=== PATIENT | female | born 1950 | race Caucasian/White ===

== ENCOUNTER 2020-08-06 08:59 | Outpatient (REF) | payer MEDICARE, SELFPAY ==
[2020-08-06 09:47] LABS: Glucose Urine UA NEG (NEG); Leukocyte Esterase Urine 1+ (NEG); Nitrite Urine NEG (NEG); Specific Gravity - Urine >= 1.030 (1.005-1.025); UACC Culture Trigger YES; Urine Blood 1+ (NEG); Urine Ketones NEG (NEG); Urine Protein NEG (NEG-TRACE)
[2020-08-06 09:49] LABS: Appearance Urine HAZY; Color Urine YELLOW
[2020-08-06 09:54] LABS: Bacteria Urine TRACE /LPF; Mucus Urine 1+ /LPF; RBC Urine 0-2 /HPF (0); Squamous Epithelial Cell Urine 1+ /LPF
[2020-08-06 10:05] LABS: MANUAL DIFF FLAG NO
[2020-08-06 10:11] LABS: Basophils Percent Auto 0.7 % (0-2); Eosinophils Absolute Auto 0.2 X10*3/uL (0.0-0.4); Eosinophils Percent Auto 2.8 % (0-4); Hematocrit 42.9 % (37-47); Hemoglobin 13.7 g/dl (12.0-16.0); Imm Gran Abs Auto 0.01 X10*3/uL (0.00-0.03); Imm Gran Pct Auto 0.2 % (0.0-0.4); Lymphocytes Absolute Auto 1.1 X10*3/uL (1.2-4.9); Lymphocytes Percent Auto 19.1 % (20-40); Mean Corpuscular HGB Conc 31.9 g/dl (31.0-35.0); Mean Corpuscular Hemoglobin 29.2 pg (27.0-33.0); Mean Corpuscular Volume 91.5 fL (80-98); Mean Platelet Volume 11.2 fL (9.4-12.3); Monocytes Absolute Auto 0.5 X10*3/uL (0.1-1.2); Neutrophils Absolute Auto 3.9 X10*3/uL (2.0-8.3); Neutrophils Percent Auto 69.2 % (45-73); Platelet Count 210 X10*3/uL (160-400); Red Blood Count 4.69 X10*6/uL (4.20-5.50); Red Cell Distribution Width 12.3 % (11.0-16.0); White Blood Count 5.7 X10*3/uL (4.8-10.8)
[2020-08-06 10:22] LABS: Alanine Aminotransferase 29 U/L (0-31); Albumin Level 4.3 g/dL (3.5-5.0); Alkaline Phosphatase 91 U/L (39-117); Anion Gap 13 (12-20); Aspartate Amino Transferase 23 U/L (5-31); Bilirubin Total 0.7 mg/dL (0.0-1.0); Blood Urea Nitrogen 17 mg/dL (9-16); Calcium 9.6 mg/dL (8.4-10.2); Carbon Dioxide 27 mmol/L (22-29); Chloride 107 mmol/L (96-108); Cholesterol 203 mg/dL; Estimated Glomerular Filt Rate > 60; Glucose Fasting 90 mg/dL (60-99); HDL Cholesterol 55 mg/dL; LDL Cholesterol Calculated 128 mg/dl; Potassium 4.4 mmol/L (3.3-5.1); Sodium 143 mmol/L (135-145); Triglycerides 104 mg/dL
[2020-08-06 10:45] LABS: Free T4 (Free Thyroxine) 0.87 ng/dL (0.71-1.85); Thyroid Stimulating Hormone 1.38 uIU/mL (0.32-4.0); Vitamin D 25-OH Total 20.8 ng/mL (>30)
== END 2020-08-06 09:00 | disposition home or self-care (01) ==
LOC: HO.LAB 08:59
PROVIDERS: PCP Internal Medicine; Visit Provider Internal Medicine
DX: E78.00 Pure hypercholesterolemia, unspecified (principal); E55.9 Vitamin D deficiency, unspecified; R30.0 Dysuria
CPT/HCPCS: 36415; 80053; 80061; 81001; 81003; 82306; 84439; 84443; 85025; 87086

== ENCOUNTER 2020-09-23 10:33 | Outpatient (REF) | payer MEDICARE, SELFPAY ==
[2020-09-23 12:57] LABS: MANUAL DIFF FLAG NO
[2020-09-23 13:03] LABS: Basophils Absolute Auto 0.1 X10*3/uL (0.0-0.2); Basophils Percent Auto 0.7 % (0-2); Eosinophils Absolute Auto 0.1 X10*3/uL (0.0-0.4); Eosinophils Percent Auto 1.8 % (0-4); Hematocrit 43.1 % (37-47); Hemoglobin 13.8 g/dl (12.0-16.0); Imm Gran Abs Auto 0.01 X10*3/uL (0.00-0.03); Imm Gran Pct Auto 0.1 % (0.0-0.4); Lymphocytes Absolute Auto 1.3 X10*3/uL (1.2-4.9); Lymphocytes Percent Auto 17.6 % (20-40); Mean Corpuscular Hemoglobin 29.1 pg (27.0-33.0); Mean Corpuscular Volume 90.9 fL (80-98); Mean Platelet Volume 11.5 fL (9.4-12.3); Monocytes Absolute Auto 0.5 X10*3/uL (0.1-1.2); Monocytes Percent Auto 7.1 % (2-11); Neutrophils Absolute Auto 5.3 X10*3/uL (2.0-8.3); Neutrophils Percent Auto 72.7 % (45-73); Platelet Count 214 X10*3/uL (160-400); Red Blood Count 4.74 X10*6/uL (4.20-5.50); Red Cell Distribution Width 12.1 % (11.0-16.0); White Blood Count 7.3 X10*3/uL (4.8-10.8)
[2020-09-23 13:31] LABS: Alanine Aminotransferase 27 U/L (0-31); Albumin Level 4.2 g/dL (3.5-5.0); Alkaline Phosphatase 77 U/L (39-117); Anion Gap 11 (12-20); Aspartate Amino Transferase 22 U/L (5-31); Bilirubin Total 1.1 mg/dL (0.0-1.0); Blood Urea Nitrogen 17 mg/dL (9-16); Calcium 9.8 mg/dL (8.4-10.2); Carbon Dioxide 30 mmol/L (22-29); Chloride 108 mmol/L (96-108); Estimated Glomerular Filt Rate > 60; Glucose Random 89 mg/dL (60-115); Potassium 4.2 mmol/L (3.3-5.1); Sodium 145 mmol/L (135-145); Total Protein 6.9 g/dL (6.5-8.0)
== END 2020-09-23 10:34 | disposition home or self-care (01) ==
LOC: HO.WFDLDS 10:33
PROVIDERS: Visit Provider Internal Medicine
DX: R30.0 Dysuria (principal); R19.7 Diarrhea, unspecified
CPT/HCPCS: 36415; 80053; 85025

== ENCOUNTER 2021-01-11 21:15 | Outpatient (REF) | payer MEDICARE, SELFPAY ==
[2021-01-13 14:02] LABS: Appearance Urine HAZY; Color Urine YELLOW; Glucose Urine UA NEG (NEG); Leukocyte Esterase Urine 1+ (NEG); Nitrite Urine NEG (NEG); Specific Gravity - Urine >= 1.030 (1.005-1.025); UACC Culture Trigger YES; Urine Blood NEG (NEG); Urine Ketones NEG (NEG); Urine Protein NEG (NEG-TRACE)
[2021-01-13 14:29] LABS: Calcium Oxalate Crystals Urine 3+ /LPF; Squamous Epithelial Cell Urine 1+ /LPF
[2021-01-13 14:30] LABS: RBC Urine 0 /HPF (0)
== END 2021-01-11 21:16 | disposition home or self-care (01) ==
LOC: HO.10HDLNP 21:15
PROVIDERS: Visit Provider Internal Medicine
DX: R30.0 Dysuria (principal)
CPT/HCPCS: 81001; 81003; 87086

== ENCOUNTER 2023-06-22 11:00 | Emergency (ER) | payer MEDICARE, SELFPAY ==
--- NOTE | ~2023-06-22 | XR_ITS ---
EXAMINATION: XR HAND, LEFT CLINICAL INFORMATION: Pain, ecchymosis over the third and second MCP COMPARISON: Hand radiographs 05/10/2010 TECHNIQUE: 3 views of the hand FINDINGS: No fracture or dislocation. Advanced degenerative changes at first carpometacarpal joint with loss of joint space and osteoarthritis at the interphalangeal joints with degenerative spurring progressed from prior. No cortical erosion. Soft tissues are unremarkable. XR/XR hand LT min 3V IMPRESSION: * No acute fracture or dislocation. 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
--- NOTE | ~2023-06-22 | CT_ITS ---
EXAMINATION: CT head/brain wo IV con CT facial bones wo IV con CT cervical spine wo IV con INDICATION INFORMATION: Fall, pain, ecchymosis to nose COMPARISON: Cervical spine radiograph 01/11/2012 TECHNIQUE: Multidetector CT acquisitions of the head, maxillofacial region, and cervical spine were obtained without IV contrast. Multiplanar reformats were acquired and utilized for image interpretation. This CT examination was performed using dose optimization techniques as appropriate, variously including the following: * Automated exposure control * Adjustment of mA and/or kV according to patient size (this includes techniques or standardized protocols for targeted exams where dose is matched to indication/reason for exam; i.e. extremities or head) Use of iterative reconstruction technique DLP: 2386 mGy-cm FINDINGS: HEAD: There is no evidence of acute intracranial hemorrhage or territorial infarction. No abnormal mass-effect or midline shift is seen. [place]ston to white matter differentiation is well preserved. No extra-axial fluid collections are identified. No hydrocephalus. Calcifications in the bilateral basal ganglia and cerebellum. Proportional prominence of the ventricles and sulcal spaces is consistent with severe volume loss. Confluent periventricular and deep white matter hypoattenuation is consistent with severe small vessel ischemic changes. No acute soft tissue abnormality. No acute calvarial fracture. Mild hyperostosis frontalis interna. The mastoid air cells are well aerated. MAXILLOFACIAL: No acute maxillofacial fractures are seen. The mandible, maxilla, pterygoid plates, nasal bones, zygomatic arches, paranasal sinus toussaint, and bony orbits are intact. Small dependent layers in the sphenoid sinuses. Otherwise, the frontal, maxillary and ethmoid sinuses are well aerated. The uncinate process is normal bilaterally. The infundibula and middle meati are patent. There is a rightward nasal septal deviation. Severe degenerative changes of the bilateral temporomandibular joints with subchondral cysts and marginal osteophytes. The mandibular heads remain well-seated in the condylar fossa. The orbits demonstrate a normal appearance bilaterally. The globes are intact, and there are no suspicious findings to suggest retrobulbar hemorrhage. CERVICAL SPINE: There is anatomic alignment of the vertebral bodies and posterior elements. Vertebral body heights and intervertebral disc spaces are maintained. No acute fracture or subluxation. Moderate multilevel facet arthropathy. The atlantooccipital and atlantoaxial articulations are normal. Moderate atlantodental spondylosis. The bony canal and neural foramina are well maintained. There is no prevertebral soft tissue swelling. No significant soft tissue abnormality within the neck. The visualized lung apices are clear. CT/CT cervical spine wo IV con IMPRESSION: 1. Evaluation is severely limited by motion artifact in the head, facial bones and cervical spine. 2. No acute intracranial hemorrhage or edematous territorial infarction. Severe chronic appearing generalized volume loss and ischemic microangiopathy. 3. No acute osseous abnormality within the maxillofacial region. Severe bilateral TMJ degenerative changes. 4. No acute osseous abnormality within the cervical spine. Moderate multilevel cervical spondylosis.
--- NOTE | 2023-06-22 11:12 | ECG_ITS ---
Test Reason : FALL Blood Pressure : / mmHG Vent. Rate : 054 BPM Atrial Rate : 054 BPM P-R Int : 138 ms QRS Dur : 078 ms QT Int : 476 ms P-R-T Axes : 033 045 055 degrees QTc Int : 451 ms Sinus bradycardia Septal infarct , age undetermined Abnormal ECG When compared with ECG of 21-APR-2003 00:01, Vent. rate has decreased BY 32 BPM Referred By: Katie Haro Electronically Signed By:DELVIN OWENS MD
[2023-06-22 11:23] VITALS: BP 157/66; BP 167/88; PULSE 53; PULSE 61; RESP 16; TEMP 36.3; O2SAT 100; O2SAT 99; BMI 25.4
--- NOTE | 2023-06-22 11:57 | ED.FALL ---
HPI - Fall General Chief Complaint: Fall Stated Complaint: FALL + HEAD STRIKE Time Seen by Provider: 06/22/23 11:11 Source: family (Daughter) and EMS Mode of arrival: EMS History of Present Illness HPI Narrative: 72-year-old [facility] of [facility] and an unwitnessed fall with head strike but unknown loss of consciousness and no history of being on blood thinners. History is provided primarily by the daughter given patient's underlying dementia. Related Data Allergies Allergy/AdvReac Type Severity Reaction Status Date / Time Unable to Assess Allergy Verified 06/22/23 11:26 Review of Systems Review of Systems: Pertinent positives and negatives as stated in HPI [facility] Past Medical History Source: nursing notes reviewed Social History Social History Smoked in Last 30 Days: No Use of substances other than those prescribed or required for medical reasons: No Advance Directives: No Advance Directives Information Provided: No Do you have a plan to hurt others: No Plan Physical Exam Vital Signs: Vital Signs: Last Vital Signs Temp 97.2 F 06/22/23 14:17 Pulse 53 06/22/23 14:17 Resp 18 06/22/23 14:17 BP 136/58 L 06/22/23 14:17 Pulse Ox 100 06/22/23 14:17 O2 Del Method Room Air 06/22/23 14:17 BMI result Body Mass Index 25.4 VITAL SIGNS: Reviewed. GENERAL: Well developed, well nourished, in no acute distress. HEAD: Normocephalic/2 cm superficial laceration to left forehead EYES: PERRLA, EOMI EARS: Ext canals without abnormality NOSE: Nares patent bilateral, no septal hematoma but significant ecchymosis over the bridge of the nose and suspect underlying fracture, no obvious deviation at this time OROPHARYNX: no oral lesions noted, posterior pharynx clear and non-erythematous without noted tonsillar enlargement/erythema/exudates NECK: Supple, no adenopathy LUNGS: Normal breath sounds. No adventitious sounds or accessory muscle use. SpO2<100> CARDIOVASCULAR: Regular rate and rhythm without noted murmurs ABDOMEN: Soft, non-tender, non-distended with bowel sounds. PELVIS: Stable, nontender MUSCULOSKELETAL: No tenderness, deformities, or effusions noted on gross inspection. EXTREMITIES: No cyanosis, clubbing or edema. SKIN: Inspection of the skin reveals no rashes NEUROLOGIC: Alert and oriented x 2. Strength and sensation to light touch were grossly intact x 4. Procedures Laceration Laceration 1: Site: face Side (If applicable): left Size (cm): 2 Description: linear Depth: simple, single layer Medical Decision Making Medical Decision Making [facility] Narrative: 72F with history and clinical presentation, DDX: mechanical fall, will rule out cervical spine injury as well as intracranial hemorrhage. I reviewed all investigations and hematologic indices are negative for leukocytosis/anemia/thrombocytopenia. Coagulation studies are within normal limits. Chemistry indices are negative for EDUARDO/electrolyte or liver enzyme derangements and high sensitivity troponin is undetectable without acute changes on EKG. CT scan of the head negative for intracranial hemorrhage or mass effect and cervical spine is negative for fracture or subluxation and facial CT does not demonstrate any evidence of fracture. My interpretation of the hand x-ray is that there are no acute fractures, patient I am able to tolerate straight catheterization, no concerns for urinary tract infection so will discontinue that steady as a feel that patient's event was a mechanical fall not secondary to underlying infection. Signed out to Dr Rodrigues - f/u LEFT hand XR Differential Diagnosis Differential Diagnoses: The differential diagnosis associated with the presentation includes Please see the discussion above Admission/Observation Consideration of admission/observation: Escalation of care including admission/observation considered Please see the discussion above Lab Data [facility] Lab Attestation statement: I reviewed the patient's lab results. Please see the discussion above 06/22/23 12:09 06/22/23 12:09 Labs: Lab Results 06/22/23 Range/Units 12:09 WBC 7.3 (4.8-10.8) X10*3/uL RBC 4.93 (4.20-5.50) X10*6/uL Hgb 14.7 (12.0-16.0) g/dl Hct 44.3 (37.0-47.0) % MCV 89.9 (80.0-98.0) fL MCH 29.8 (27.0-33.0) pg MCHC 33.2 (31.0-35.0) g/dl RDW 12.5 (11.0-16.0) % Plt Count 247 (160-400) X10*3/uL MPV 10.9 (9.4-12.3) fL Immature Gran % (Auto) 0.3 (0.0-0.4) % Neut % (Auto) 75.8 H (45-73) % Lymph % (Auto) 12.9 L (20-40) % [place] % (Auto) 6.1 (2-11) % Eos % (Auto) 4.2 H (0-4) % Baso % (Auto) 0.7 (0-2) % Lymph # (Auto) 1.0 L (1.2-4.9) X10*3/uL [place] # (Auto) 0.5 (0.1-1.2) X10*3/uL Eos # (Auto) 0.3 (0.0-0.4) X10*3/uL Baso # (Auto) 0.1 (0.0-0.2) X10*3/uL Abs Immat Gran (auto) 0.02 (0.00-0.03) X10*3/uL Absolute Neuts (auto) 5.6 (2.0-8.3) x10*3/uL Absolute Nucleated RBC 0.000 (0.0-0.012) X10*3/uL Nucleated RBC % (auto) 0.0 (0.0-0.2) /100WBC PT 12.1 (11.1-13.3) SEC INR 1.0 (0.9-1.1) Sodium 144 (135-145) mmol/L Potassium 3.8 (3.3-5.1) mmol/L Chloride 106 (96-108) mmol/L Carbon Dioxide 27 (22-29) mmol/L Anion Gap 15 (12-20) BUN 12 (9-16) mg/dL Creatinine 0.72 (0.5-1.4) mg/dL Estim Creat Clear Calc 65.5 Estimated GFR > 60 Random Glucose 93 (60-115) mg/dL Calcium 9.6 (8.4-10.2) mg/dL Total Bilirubin 0.6 (0.0-1.0) mg/dL AST 22 (5-31) U/L ALT 17 (0-31) U/L Alkaline Phosphatase 89 (39-117) U/L Troponin I High Sens < 2.7 (<3.5-17.0) ng/L Total Protein 7.6 (6.5-8.0) g/dL Albumin 4.1 (3.5-5.0) g/dL Independent Interpretation I performed an independent interpretation of an: EKG Interpretation: Sinus bradycardia, HR -54, no STEMI, [place]/QRS/QTC is within normal limits. Radiology Impression Discussion of test interpretation with radiology: I have reviewed the radiologist's reading. Radiologist Impression: Please see the discussion above Critical Care Time Critical Care Time Critical Care Time: Yes Total Critical Care Time: 45 Attestation: I personally attest to this time spent taking care of the patient. Discharge Plan Discharge Clinical Impression: Fall, Forehead laceration, Laceration of nose, Contusion of nose Patient Disposition: er [facility] Instructions: Laceration (ED), Fall Prevention for Older Adults (ED), Skin Adhesive Care (ED) Additional Instructions: May gently cleanse laceration of the nose with soap and water and allowed to heal. Please do not expose the skin adhesive to water for the next 24 hours but thereafter there should be no problem. Follow-up with primary care doctor within the next 1-2 days. Referrals: Faith Vargas NP [Primary Care Provider] - Print Language: Tuvaluan
[2023-06-22 12:14] LABS: MANUAL DIFF FLAG NO
[2023-06-22 12:18] LABS: Basophils Absolute Auto 0.1 X10*3/uL (0.0-0.2); Basophils Percent Auto 0.7 % (0-2); Eosinophils Absolute Auto 0.3 X10*3/uL (0.0-0.4); Eosinophils Percent Auto 4.2 % (0-4); Hematocrit 44.3 % (37.0-47.0); Hemoglobin 14.7 g/dl (12.0-16.0); Imm Gran Abs Auto 0.02 X10*3/uL (0.00-0.03); Imm Gran Pct Auto 0.3 % (0.0-0.4); Lymphocytes Percent Auto 12.9 % (20-40); Mean Corpuscular HGB Conc 33.2 g/dl (31.0-35.0); Mean Corpuscular Hemoglobin 29.8 pg (27.0-33.0); Mean Corpuscular Volume 89.9 fL (80.0-98.0); Mean Platelet Volume 10.9 fL (9.4-12.3); Monocytes Absolute Auto 0.5 X10*3/uL (0.1-1.2); Monocytes Percent Auto 6.1 % (2-11); Neutrophils Absolute Auto 5.6 x10*3/uL (2.0-8.3); Neutrophils Percent Auto 75.8 % (45-73); Platelet Count 247 X10*3/uL (160-400); Red Blood Count 4.93 X10*6/uL (4.20-5.50); Red Cell Distribution Width 12.5 % (11.0-16.0); White Blood Count 7.3 X10*3/uL (4.8-10.8)
[2023-06-22 12:22] LABS: Prothrombin Time 12.1 SEC (11.1-13.3)
[2023-06-22 12:30] LABS: Alanine Aminotransferase 17 U/L (0-31); Albumin Level 4.1 g/dL (3.5-5.0); Alkaline Phosphatase 89 U/L (39-117); Anion Gap 15 (12-20); Aspartate Amino Transferase 22 U/L (5-31); Bilirubin Total 0.6 mg/dL (0.0-1.0); Blood Urea Nitrogen 12 mg/dL (9-16); Calcium 9.6 mg/dL (8.4-10.2); Carbon Dioxide 27 mmol/L (22-29); Chloride 106 mmol/L (96-108); Creatinine Clr Calc Pharmacy 65.5; Estimated Glomerular Filt Rate > 60; Glucose Random 93 mg/dL (60-115); Potassium 3.8 mmol/L (3.3-5.1); Sodium 144 mmol/L (135-145); Total Protein 7.6 g/dL (6.5-8.0)
[2023-06-22 12:41] LABS: Troponin-I High Sensitivity < 2.7 ng/L (<3.5-17.0)
--- NOTE | 2023-06-22 12:56 | PC.NURSE ---
pt comes from dementia unit at the [facility] in [place]. per pt daughter who is at bedside, pt is at baseline mentation. pt face is bloodies with 1 inch lac to firehead and 1 in lac to tip of nose. pt cleaned up and non-stick pad placed to forehead to help keep blood out of eyes. pt resting quietly, denies pain. rr even/unlabored. plan of care ongoing.
[2023-06-22 14:17] VITALS: BP 136/58; PULSE 53; RESP 18; TEMP 36.2; O2SAT 100
[2023-06-22 16:59] VITALS: BP 150/58; PULSE 60; RESP 16; TEMP 36.4; O2SAT 96
[2023-06-22 17:00] VITALS: BP 150/58; PULSE 60; RESP 16; TEMP 36.4; O2SAT 96
== END 2023-06-22 17:01 | disposition skilled nursing facility (03) ==
PROVIDERS: Emergency Provider Student in an Organized Health Care Education/Training Program; PCP Nurse Practitioner Family
DX: S01.81XA Laceration without foreign body of other part of head, initial encounter (principal); S01.21XA Laceration without foreign body of nose, initial encounter; S00.33XA Contusion of nose, initial encounter; F03.90 Unspecified dementia, unspecified severity, without behavioral disturbance, psychotic disturbance, mood disturbance, and anxiety; W19.XXXA Unspecified fall, initial encounter; Y93.9 Activity, unspecified; Y92.9 Unspecified place or not applicable; Y99.9 Unspecified external cause status
CPT/HCPCS: 12011; 36415; 51701; 70450; 70486; 72125; 73130; 80053; 84484; 85025; 85610; 93005; 99284

== ENCOUNTER → 2023-06-22 11:12 | Outpatient (BNV) | payer MEDICARE, SELFPAY | PROVIDERS: Emergency Provider Student in an Organized Health Care Education/Training Program; PCP Nurse Practitioner Family; Visit Provider Internal Medicine Cardiovascular Disease | DX: R00.1 Bradycardia, unspecified (principal); R94.31 Abnormal electrocardiogram [ECG] [EKG] | CPT/HCPCS: 93010 ==

== ENCOUNTER 2023-08-31 13:32 | Emergency (ER) | payer MEDICARE, SELFPAY ==
--- NOTE | ~2023-08-31 | CT_ITS ---
EXAM: CT HEAD WITHOUT CONTRAST CT CERVICAL SPINE INDICATION: Reason for Exam fall head strike TECHNIQUE: A noncontrast CT scan was performed from the skull base to the vertex. A noncontrast CT scan of the cervical spine was performed from the base of the skull through T1 at 2.5 mm and 0.625 mm collimation. Coronal and sagittal reformats were obtained at the acquisition workstation. This CT examination was performed using dose optimization techniques as appropriate, variously including the following: * Automated exposure control * Adjustment of mA and/or kV according to patient size (this includes techniques or standardized protocols for targeted exams where dose is matched to indication/reason for exam; i.e. extremities or head) * Use of iterative reconstruction technique Dose length product is 1508 mGy-cm. COMPARISON: CT 06/22/2023 FINDINGS: Head: Motion artifact degrading images, limiting evaluation. There is no evidence of acute intracranial hemorrhage or territorial infarction. No abnormal mass effect or midline shift is seen. [place] to white matter differentiation is well preserved. No extra-axial fluid collections are identified. Commensurate prominence of the ventricles and sulci is compatible with generalized parenchymal volume loss. There is periventricular and subcortical white matter hypoattenuation, most likely representing microangiopathic disease. No acute calvarial fracture.. Right maxillary sinus mucosal thickening/fluid. Sphenoid sinus partial opacification/effusions. Mastoid air cells are well-aerated. Cervical Spine: Significant motion artifact degrading images, limiting evaluation. The atlantooccipital and atlantoaxial articulations is maintained.. Straightening of the normal cervical lordosis. Otherwise, there is anatomic alignment of the vertebral bodies and posterior elements. Vertebral body heights are maintained. No significant vertebral body compression is identified. Evaluation for fracture is limited by significant motion artifact. Multilevel mild-moderate cervical spondylosis. Central canal is maintained. No prevertebral soft tissue swelling. Biapical pleural parenchymal scarring. CT/CT cervical spine wo IV con IMPRESSION: CT HEAD: 1. CT head evaluation is limited by motion artifact. No evidence of acute intracranial hemorrhage or edematous large vessel territorial infarction.. Repeat CT as clinically indicated. 2. Right maxillary, sphenoid sinus disease. CT cervical spine 1. Significant motion artifact degrading images, limiting evaluation. Repeat CT scan as clinically indicated. 2. Vertebral body heights are maintained without evidence of significant compression deformity. Evaluation for fractures is otherwise limited. 3. Cervical spondylosis.
--- NOTE | ~2023-08-31 | XR_ITS ---
EXAMINATION: PORTABLE CHEST 1 VIEW CLINICAL INFORMATION: fall chest trauma. COMPARISON: No recent pertinent prior studies are available for comparison. TECHNIQUE: Portable frontal view of the chest was obtained. FINDINGS: The lungs are well expanded. Chronic appearing coarsened reticular markings are seen but no acute appearing focal infiltrate, effusion, edema, or pneumothorax. Cardiac and mediastinal silhouettes are within normal limits for technique. No acute bony abnormality seen. Specifically no displaced rib fractures are appreciated. XR/XR chest 1V IMPRESSION: No evidence of acute disease.
[2023-08-31 13:46] VITALS: BP 114/89; BP 121/57; PULSE 52; PULSE 72; RESP 16; TEMP 36.9; O2SAT 100; O2SAT 98; BMI 24.2
[2023-08-31 13:54] VITALS: BP 121/57; PULSE 52; RESP 16; TEMP 36.9; O2SAT 98
--- NOTE | 2023-08-31 13:56 | ECG_ITS ---
Test Reason : FALL Blood Pressure : / mmHG Vent. Rate : 055 BPM Atrial Rate : 055 BPM P-R Int : 154 ms QRS Dur : 072 ms QT Int : 488 ms P-R-T Axes : 041 029 053 degrees QTc Int : 466 ms Sinus bradycardia Septal infarct (cited on or before 22-JUN-2023) Abnormal ECG When compared with ECG of 22-JUN-2023 11:43, No significant change was found Referred By: Eduin Zamora Electronically Signed By:HERNAN HERMAN
--- NOTE | 2023-08-31 14:09 | ED.GENADULT ---
HPI - General Adult General Chief complaint: Fall Stated complaint: FALL WITH HEADSTRIKE Time Seen by Provider: 08/31/23 13:57 History of Present Illness ED Provider: Noah WINCHESTER HPI narrative: 72 yo female with history of advanced dementia presenting with daughter after a fall at [facility]. Staff reports head strike on the shower, denies LOC or open wound, not on blood thinners. Patient is not a reliable historian, daughter at bedside helping gather history. Daughter reports patient has advanced dementia and cognitive impairment but is able to ambulate independently. Patient is fatigued and not responding to questions, daughter reports she seems more tired than usual. Unclear of symptoms prior to fall. C collar in place. Related Data Previous Rx's ?Medication ?Instructions ?Recorded nystatin 100,000 unit/gram topical 1 appl topical BID #15 grams 08/31/23 cream Allergies Allergy/AdvReac Type Severity Reaction Status Date / Time Unable to Assess Allergy Verified 08/31/23 13:50 [facility] Social History Social History Advance Directives: No Advance Directives Information Provided: No Do you have a plan to hurt others: No Plan Physical Exam ED Vital Signs: Vital Signs - 24 hr 08/31/23 13:46 08/31/23 13:54 08/31/23 13:54 Temperature 98.4 F 98.4 F 98.4 F Pulse Rate 52 52 52 Respiratory Rate 16 16 16 Blood Pressure 121/57 L 121/57 L 121/57 L Pulse Oximetry 98 98 98 Oxygen Delivery Method Room Air Room Air Oxygen Flow Rate 08/31/23 15:51 Temperature 97.6 F Pulse Rate 55 Respiratory Rate 10 L Blood Pressure Pulse Oximetry 100 Oxygen Delivery Method Room Air Oxygen Flow Rate 99 BMI result Body Mass Index 24.2 vss Appearance: Not oriented to time, situation, place. No acute distress.? Head: Normocephalic, atraumatic, no step-offs or deformities Eyes: Pupils equal, round and reactive to light.?Constricted pupils b/l Neck: Normal inspection.? Neck supple.? CVS: Normal heart rate and rhythm.? Pulses normal.? Respiratory: No respiratory distress.? Breath sounds normal.? Abdomen: Soft and nontender.? Skin: Skin warm and dry.? Normal skin color.? Normal skin turgor.? Extremities: No lower extremity edema.? No calf ttp. 5/5 strength to bilateral upper and lower extremities Back: No midline tenderness, no C-spine tenderness, full range of motion, no CVA tenderness bilaterally Neuro: Not oriented to time, place, or situation. No motor deficit.? No sensory deficit. CN 2-12 intact Course Reevaluation(s) Reevaluation #1: CBC unremarkable. Chemistry pending. UA pending Time: 15:13 Reevaluation #2: CT head limited by motion no evidence of acute intracranial hemorrhage or edematous large vessel territorial infarction right maxillary sphenoid sinus disease. Significant motion artifact again in the cervical spine vertebral body heights are maintained without evidence of significant compression deformity. Chemistry unremarkable. Nursing currently trying to straight cath. Time: 15:32 Reevaluation #3: Sign out to janki. Medical Decision Making Medical Decision Making [facility] Narrative: 72 year old female with history of dementia presenting after fall at [facility] facility, + head strike no LOC, not on blood thinners. PE not oriented to person, place, or situation, b/l miosis. Hx and PE concerning for concussion versus ICH. Unlikely stroke, posterior stroke, ACS, arrhythmia, dissection. Plan - labs, imaging, EKG, urine Differential Diagnosis Differential Diagnoses: The differential diagnosis associated with the presentation includes Hx and PE concerning for concussion versus ICH. Unlikely stroke, posterior stroke, ACS, arrhythmia, dissection. Admission/Observation Consideration of admission/observation: Escalation of care including admission/observation considered Lab Data [facility] Lab Attestation statement: I reviewed the patient's lab results. 08/31/23 15:00 08/31/23 15:00 Labs: Lab Results 08/31/23 Range/Units 15:00 WBC 7.4 (4.8-10.8) X10*3/uL RBC 4.56 (4.20-5.50) X10*6/uL Hgb 13.6 (12.0-16.0) g/dl Hct 40.3 (37.0-47.0) % MCV 88.4 (80.0-98.0) fL MCH 29.8 (27.0-33.0) pg MCHC 33.7 (31.0-35.0) g/dl RDW 12.3 (11.0-16.0) % Plt Count 187 (160-400) X10*3/uL MPV 11.0 (9.4-12.3) fL Immature Gran % (Auto) 0.3 (0.0-0.4) % Neut % (Auto) 77.5 H (45-73) % Lymph % (Auto) 13.2 L (20-40) % [place] % (Auto) 6.6 (2-11) % Eos % (Auto) 2.0 (0-4) % Baso % (Auto) 0.4 (0-2) % Lymph # (Auto) 1.0 L (1.2-4.9) X10*3/uL [place] # (Auto) 0.5 (0.1-1.2) X10*3/uL Eos # (Auto) 0.2 (0.0-0.4) X10*3/uL Baso # (Auto) 0.0 (0.0-0.2) X10*3/uL Abs Immat Gran (auto) 0.02 (0.00-0.03) X10*3/uL Absolute Neuts (auto) 5.7 (2.0-8.3) x10*3/uL Absolute Nucleated RBC 0.000 (0.0-0.012) X10*3/uL Nucleated RBC % (auto) 0.0 (0.0-0.2) /100WBC PT 12.4 (11.1-13.3) SEC INR 1.0 (0.9-1.1) Sodium 143 (135-145) mmol/L Potassium 3.9 (3.3-5.1) mmol/L Chloride 111 H (96-108) mmol/L Carbon Dioxide 24 (22-29) mmol/L Anion Gap 12 (12-20) BUN 16 (9-16) mg/dL Creatinine 0.78 (0.5-1.4) mg/dL Estim Creat Clear Calc 60.1 Estimated GFR > 60 Random Glucose 91 (60-115) mg/dL Calcium 9.3 (8.4-10.2) mg/dL Total Bilirubin 0.4 (0.0-1.0) mg/dL AST 22 (5-31) U/L ALT 14 (0-31) U/L Alkaline Phosphatase 81 (39-117) U/L Total Protein 6.8 (6.5-8.0) g/dL Albumin 3.7 (3.5-5.0) g/dL Independent Interpretation I performed an independent interpretation of an: CT Scan ( CT/CT cervical spine wo IV con IMPRESSION: CT HEAD: 1. CT head evaluation is limited by motion artifact. No evidence of acute intracranial hemorrhage or edematous large vessel territorial infarction.. Repeat CT as clinically indicated. 2. Right maxillary, sphenoid sinus disease. CT cervical spi) Radiology Impression Discussion of test interpretation with radiology: I have reviewed the radiologist's reading. External Record Review External record reviewed: Outpatient record and Prior outpatient radiology Chronic Conditions Patient?s care impacted by: Other (dementia ) Discharge Plan Discharge Clinical Impression: Fall, Concussion, Dementia, Candidal intertrigo Patient Disposition: Home, Self-Care Instructions: Dementia (ED), Concussion (ED), Fall Prevention (ED) Additional Instructions: Take your medications as prescribed. If you were prescribed antibiotics today, it is important that you take your medication to their entirety, do not skip any doses, do not finish them early. Follow-up with your primary care provider this week. Return to the emergency department with new or worsening symptoms. Such as fevers, chills, chest pain, shortness of breath, nausea, vomiting, dizziness, headache, vision changes, lethargy In case of emergency call 911 Prescriptions: New nystatin 100,000 unit/gram cream 1 appl topical BID Qty: 15 0RF Referrals: Physician,Unknown J [Primary Care Provider] - 2 days Print Language: Chilean
[2023-08-31 15:05] LABS: MANUAL DIFF FLAG NO
[2023-08-31 15:06] LABS: Basophils Percent Auto 0.4 % (0-2); Eosinophils Absolute Auto 0.2 X10*3/uL (0.0-0.4); Hematocrit 40.3 % (37.0-47.0); Hemoglobin 13.6 g/dl (12.0-16.0); Imm Gran Abs Auto 0.02 X10*3/uL (0.00-0.03); Imm Gran Pct Auto 0.3 % (0.0-0.4); Lymphocytes Percent Auto 13.2 % (20-40); Mean Corpuscular HGB Conc 33.7 g/dl (31.0-35.0); Mean Corpuscular Hemoglobin 29.8 pg (27.0-33.0); Mean Corpuscular Volume 88.4 fL (80.0-98.0); Monocytes Absolute Auto 0.5 X10*3/uL (0.1-1.2); Monocytes Percent Auto 6.6 % (2-11); Neutrophils Absolute Auto 5.7 x10*3/uL (2.0-8.3); Neutrophils Percent Auto 77.5 % (45-73); Platelet Count 187 X10*3/uL (160-400); Red Blood Count 4.56 X10*6/uL (4.20-5.50); Red Cell Distribution Width 12.3 % (11.0-16.0); White Blood Count 7.4 X10*3/uL (4.8-10.8)
[2023-08-31 15:11] LABS: Prothrombin Time 12.4 SEC (11.1-13.3)
[2023-08-31 15:24] LABS: Alanine Aminotransferase 14 U/L (0-31); Albumin Level 3.7 g/dL (3.5-5.0); Alkaline Phosphatase 81 U/L (39-117); Anion Gap 12 (12-20); Aspartate Amino Transferase 22 U/L (5-31); Bilirubin Total 0.4 mg/dL (0.0-1.0); Blood Urea Nitrogen 16 mg/dL (9-16); Calcium 9.3 mg/dL (8.4-10.2); Carbon Dioxide 24 mmol/L (22-29); Chloride 111 mmol/L (96-108); Creatinine Clr Calc Pharmacy 60.1; Estimated Glomerular Filt Rate > 60; Glucose Random 91 mg/dL (60-115); Potassium 3.9 mmol/L (3.3-5.1); Sodium 143 mmol/L (135-145); Total Protein 6.8 g/dL (6.5-8.0)
[2023-08-31 15:51] VITALS: PULSE 55; RESP 10; TEMP 36.4; O2SAT 100
[2023-08-31 16:03] LABS: Appearance Urine Cloudy; Color Urine Yellow; Glucose Urine UA Negative (Negative); Leukocyte Esterase Urine Large (3+) (Negative); Nitrite Urine Negative (Negative); PH 6.5 (5.0-9.0); UMIC TRIGGER UACC YES; Urine Blood Moderate (2+) (Negative); Urine Ketones Negative (Negative); Urine Protein Negative (Neg-Trace)
[2023-08-31 16:35] LABS: Influenza A PCR NEGATIVE (Negative); Influenza B PCR NEGATIVE (Negative); Resp Syncy Virus RNA Qual PCR NEGATIVE (Negative); SARS COV2 PCR INHOUSE POSITIVE (Negative)
[2023-08-31 16:45] LABS: RBC Urine 0-2 /HPF (0-2); UACC Culture Trigger YES
[2023-08-31 16:46] LABS: Bacteria Urine 1+ (None Seen); Hyaline Casts Urine 0-2 /LPF (0-2); Squamous Epithelial Cell Urine 0-2 /HPF (0-2)
[2023-08-31 17:23] VITALS: BP 131/64; PULSE 55; RESP 10; TEMP 36.4; O2SAT 100
[2023-08-31 18:34] VITALS: BP 131/64; PULSE 55; RESP 10; TEMP 36.4; O2SAT 100
== END 2023-08-31 18:35 ==
PROVIDERS: Physician Assistant; Emergency Provider Emergency Medicine
DX: U07.1 COVID-19 (principal); S06.0X0A Concussion without loss of consciousness, initial encounter; W19.XXXA Unspecified fall, initial encounter; F03.90 Unspecified dementia, unspecified severity, without behavioral disturbance, psychotic disturbance, mood disturbance, and anxiety; B37.2 Candidiasis of skin and nail; R00.1 Bradycardia, unspecified; Z91.81 History of falling; Y93.9 Activity, unspecified; Y92.129 Unspecified place in nursing home as the place of occurrence of the external cause; Y99.9 Unspecified external cause status
CPT/HCPCS: 0241U; 36415; 51701; 70450; 71045; 72125; 80053; 81001; 81003; 85025; 85610; 87086; 93005; 99284; 99285

== ENCOUNTER → 2023-08-31 13:56 | Outpatient (BNV) | payer MEDICARE, SELFPAY | PROVIDERS: Emergency Provider Emergency Medicine; Visit Provider Internal Medicine | DX: R94.31 Abnormal electrocardiogram [ECG] [EKG] (principal) | CPT/HCPCS: 93010 ==

== ENCOUNTER 2023-09-26 14:24 | Emergency (ER) | payer MEDICARE, SELFPAY ==
--- NOTE | ~2023-09-26 | CT_ITS ---
EXAMINATION: CT CERVICAL SPINE WITHOUT CONTRAST; UNENHANCED CT OF THE HEAD. CLINICAL INFORMATION: Fall. Head injury. COMPARISON: CT head and cervical spine 08/31/2023 TECHNIQUE: Routine unenhanced CT of the head with multiple coronal and sagittal reformatted images; routine unenhanced CT of the cervical spine with multiple coronal and sagittal reformatted images. This CT examination was performed using dose optimization techniques as appropriate, variously including the following: *Automated exposure control *Adjustment of mA and/or kV according to patient size (this includes techniques or standardized protocols for targeted exams where dose is matched to indication/reason for exam; i.e. extremities or head) *Use of iterative reconstruction technique DLP: 859 mGy-cm FINDINGS: No intracranial hemorrhage, tumors or acute infarcts identified. Moderate-marked diffuse commensurate prominence of ventricles and sulci. Moderate scattered subcortical and periventricular white matter patchy hypodensities. The orbits and globes are normal in appearance. No extracranial soft tissue inflammatory changes noted. Opacification of a small number of left mastoid air cells of uncertain clinical significance is noted. Mild opacification of the sphenoid sinus is noted. Mild hyperostosis frontalis interna. CT cervical spine: No fractures or acute appearing subluxations noted. Moderate multilevel facet hypertrophic changes identified. Mild multilevel intervertebral disc space narrowing. Visualized lung apices are clear. No prevertebral fluid collections or soft tissue inflammatory changes noted. Mild bilateral carotid bulb calcific atherosclerotic plaques. CT/CT cervical spine wo IV con IMPRESSION: CT head: *No acute intracranial abnormalities. *Mild left and moderate chronic microangiopathic ischemic changes. CT cervical spine: *No acute abnormalities. *Mild multilevel chronic spondylosis.
--- NOTE | ~2023-09-26 | CT_ITS ---
EXAMINATION: CT CERVICAL SPINE WITHOUT CONTRAST; UNENHANCED CT OF THE HEAD. CLINICAL INFORMATION: Fall. Head injury. COMPARISON: CT head and cervical spine 08/31/2023 TECHNIQUE: Routine unenhanced CT of the head with multiple coronal and sagittal reformatted images; routine unenhanced CT of the cervical spine with multiple coronal and sagittal reformatted images. This CT examination was performed using dose optimization techniques as appropriate, variously including the following: *Automated exposure control *Adjustment of mA and/or kV according to patient size (this includes techniques or standardized protocols for targeted exams where dose is matched to indication/reason for exam; i.e. extremities or head) *Use of iterative reconstruction technique DLP: 859 mGy-cm FINDINGS: No intracranial hemorrhage, tumors or acute infarcts identified. Moderate-marked diffuse commensurate prominence of ventricles and sulci. Moderate scattered subcortical and periventricular white matter patchy hypodensities. The orbits and globes are normal in appearance. No extracranial soft tissue inflammatory changes noted. Opacification of a small number of left mastoid air cells of uncertain clinical significance is noted. Mild opacification of the sphenoid sinus is noted. Mild hyperostosis frontalis interna. CT cervical spine: No fractures or acute appearing subluxations noted. Moderate multilevel facet hypertrophic changes identified. Mild multilevel intervertebral disc space narrowing. Visualized lung apices are clear. No prevertebral fluid collections or soft tissue inflammatory changes noted. Mild bilateral carotid bulb calcific atherosclerotic plaques. CT/CT head/brain wo IV con IMPRESSION: CT head: *No acute intracranial abnormalities. *Mild left and moderate chronic microangiopathic ischemic changes. CT cervical spine: *No acute abnormalities. *Mild multilevel chronic spondylosis.
[2023-09-26 14:33] VITALS: BP 122/60; PULSE 64; O2SAT 96; BMI 26.4
--- NOTE | 2023-09-26 14:44 | ED.FALL ---
HPI - Fall General Chief Complaint: Fall Stated Complaint: FALL FROM A SNF PER EMS Time Seen by Provider: 09/26/23 14:42 Source: patient Mode of arrival: EMS Limitations: other History of Present Illness HPI Narrative: 72-year-old female from a local long term her [employer] alarm which scared her she will forward hitting her head. Patient denies loss of consciousness chest pain cough fevers that she was in normal state of health prior to fall. Patient is not on any blood thinners complaint: fall Related Data Previous Rx's ?Medication ?Instructions ?Recorded cefuroxime axetil 250 mg tablet 250 mg PO BID 7 days #14 tabs 08/31/23 nystatin 100,000 unit/gram topical 1 appl topical BID #15 grams 08/31/23 cream Allergies Allergy/AdvReac Type Severity Reaction Status Date / Time Unable to Assess Allergy Verified 09/26/23 14:35 Review of Systems Review of Systems: Review of systems: General: Patient denies any fever chills recent illness or falls Musculoskeletal: Denies back pain or body aches or other injuries HEENT: denies headache, runny nose, ear pain Respiratory: denies shortness of breath, cough Cardiovascular: no chest pain or palpitations : denies dysuria, frequency Abdomen: no nausea vomiting denies abdominal pain Extremities: no swelling, no pain Skin: no diaphoresis Yes all other systems are reviewed and are negative PMFSH Social History Social History Advance Directives: Yes Advance Directives on File: Yes Advance Directives Date on File: 09/26/23 Do you have a plan to hurt others: No Plan Physical Exam Vital Signs: Vital Signs: BMI result Body Mass Index 26.4 Neurological exam: CN II- XII tested. Patient is alert and oriented to person place and time. Patient has no dysphagia or dysarthia, denies good vision in all four vision schmidt no nystagmus on exam, good strength to upper and lower extremities with normal reflexes to brachioradialis, wrist, patella and achilles. Negative romberg, good finger to nose and heel to evangelista. General: Well-appearing well-nourished in no signs of distress HEENT: Normocephalic atraumatic Neck: No signs of JVD, no masses no tenderness or lymphadenopathy Cardiovascular: Regular rate and rhythm Respiratory: Clear to auscultation bilaterally Abdomen: Soft nontender no masses Extremities: Normal pedal pulses no signs of edema Skin: Dry warm no rashes Back: No tenderness full ROM Course Course Course Narrative: CT head and neck are both unremarkable I will discharge the patient home at this time Medical Decision Making Medical Decision Making [facility] Narrative: Will send for CT scans Differential Diagnosis Differential Diagnoses: The differential diagnosis associated with the presentation includes Laceration hematoma acute intracranial hemorrhage Admission/Observation Consideration of admission/observation: Escalation of care including admission/observation considered Independent Interpretation I performed an independent interpretation of an: CT Scan Radiology Impression Discussion of test interpretation with radiology: I have reviewed the radiologist's reading. External Record Review External record reviewed: Inpatient record, Office record and Outpatient record Discharge Plan Discharge Clinical Impression: Fall, Head injury Patient Disposition: Still a Patient Instructions: Head Injury (ED), Fall Prevention for Older Adults (ED) Additional Instructions: You were seen today in the emergency department after a fall. You had a CT of the head and neck which were all unremarkable please call follow-up with your doctor as needed Prescriptions: No Action nystatin 100,000 unit/gram cream 1 appl topical BID Qty: 15 0RF cefuroxime axetil 250 mg tablet 250 mg PO BID 7 Days Qty: 14 0RF Print Language: Hungarian
[2023-09-26 17:10] VITALS: BP 113/39; PULSE 60; RESP 16; TEMP 36; O2SAT 97
[2023-09-26] MEDS: Diphth,Pertus(ACell),Tet Adult 0.5 ML SYRINGE IM (17:24)
[2023-09-26 19:34] VITALS: BP 120/60; PULSE 80; RESP 14; TEMP 36.6; O2SAT 97
== END 2023-09-26 19:35 | disposition still patient (30) ==
PROVIDERS: Emergency Provider Student in an Organized Health Care Education/Training Program; PCP Nurse Practitioner Family
DX: S09.90XA Unspecified injury of head, initial encounter (principal); S01.112A Laceration without foreign body of left eyelid and periocular area, initial encounter; W18.39XA Other fall on same level, initial encounter; Y93.89 Activity, other specified; Y92.129 Unspecified place in nursing home as the place of occurrence of the external cause; Y99.9 Unspecified external cause status; F03.90 Unspecified dementia, unspecified severity, without behavioral disturbance, psychotic disturbance, mood disturbance, and anxiety; Z23 Encounter for immunization
CPT/HCPCS: 70450; 72125; 90471; 90715; 99283; 99284